=== PATIENT | male | born 1995 | race Caucasian/White ===

== ENCOUNTER 2017-01-31 19:22 | Emergency (ER) | payer BC, OTHER ==
[~2017-01-31 19:22] MED LIST: BACT2OIN TOP; CLEO300C2 PO
[2017-01-31 19:25] VITALS: BP 148/80; PULSE 58; RESP 18; TEMP 98.7; O2SAT 97
[2017-01-31] MEDS ORDERED: PROM12.54 PO (20:20)
[2017-01-31 20:25] LABS: AUTOMATED NEUTROPHIL # 5.2 TH/MM3 (1.8-7.7); BASOPHIL % 0.4 % (0.0-2.0); HEMOGLOBIN 18.1 GM/DL (13.0-17.0); LYMPH % 13.9 % (9.0-44.0); MEAN CELL VOLUME 84.6 FL (80.0-100.0); MEAN CORPUSCULAR HEMOGLOBIN 30.1 PG (27.0-34.0); MEAN CORPUSCULAR HGB CONC 35.6 % (32.0-36.0); MONO % 12.8 % (0.0-8.0); MONOCYTE # 0.9 TH/MM3 (0-0.9); NEUT % 72.9 % (16.0-70.0); PLATELET COUNT 271 TH/MM3 (150-450); RED BLOOD COUNT 6.03 MIL/MM3 (4.50-5.90); WHITE BLOOD COUNT 7.1 TH/MM3 (4.0-11.0)
[2017-01-31 20:35] LABS: INTERNATIONAL NORMALIZED RATIO 1.1 RATIO; PROTHROMBIN TIME - PATIENT 11.4 SEC (9.8-11.6)
[2017-01-31] MEDS ORDERED: ONDANSETRON HCL 4 MG/2 ML VIAL IV PUSH ONE (20:45)
[2017-01-31] MEDS ORDERED: SODIUM CHLORIDE 0.9% FLUSH 10 ML FLUSH IVF PRN (20:45)
[2017-01-31] MEDS ORDERED: SODIUM CHLOR 0.9% 1000 ML INJ 1,000 ML IV ONE ×2 (20:45→22:00)
[2017-01-31 20:47] LABS: ALT (GPT) 36 U/L (12-78); BICARBONATE 25.8 MEQ/L (21.0-32.0); BLOOD UREA NITROGEN 15 MG/DL (7-18); CALCIUM 9.2 MG/DL (8.5-10.1); CHLORIDE 93 MEQ/L (98-107); CREATININE 0.98 MG/DL (0.60-1.30); GLOMERULAR FILTRATION RATE 96 ML/MIN (>89); GLUCOSE,RANDOM 116 MG/DL (74-106); LIPASE 154 U/L (73-393); SODIUM (NA) 133 MEQ/L (136-145)
[2017-01-31 20:52] LABS: ALKALINE PHOSPHATASE 71 U/L (45-117); AST (GOT) 30 U/L (15-37); TOTAL BILIRUBIN ADULT 0.5 MG/DL (0.2-1.0); TOTAL PROTEIN 8.2 GM/DL (6.4-8.2)
[2017-01-31 20:58] LABS: BILIRUBIN, URINE NEG (NEG); BLOOD, URINE MOD (NEG); GLUCOSE,URINE NEG (NEG); KETONE, URINE 80 mg/dL (NEG); MUCUS URINE FEW /lpf (OCC); NITRITE,URINE NEG (NEG); SQUAMOUS EPITHELIAL CELL URINE <1 /hpf (0-5); URINE COLOR YELLOW (YELLW/STRAW); URINE LEUKOCYTE ESTERASE NEG (NEG)
[2017-01-31] MEDS ORDERED: FAMOTIDINE 20 MG/2 ML VIAL IV PUSH STA (21:43)
--- NOTE | 2017-01-31 21:48 | PD ---
HPI Chief Complaint: Cold / Flu Symptoms Time Seen by Provider: 20:36 Travel History International Travel<30 days: No Contact w/Intl Traveler<30days: No Traveled to known affect area: No History of Present Illness HPI Patient is a 21-year-old male presenting to the emergency department for evaluation of 3 days of nausea, vomiting, epigastric abdominal pain, diarrhea. He states that he had a fever on the first day of illness, he has not had a fever since that day. He went to his primary doctor yesterday and was prescribed Tamiflu and nausea medication which he has been unable to keep down. Patient reports that a friend had a similar illness which resolved on its own. He states the pain is epigastric and burning in nature, he rates his pain a 4/10 there are no alleviating or exacerbating factors. Patient denies any significant past medical history, he does report occasional tobacco, alcohol and marijuana use. PFSH Past Medical History Medical History: Denies Significant Hx Autoimmune Disease: No Blood Disorders: No Anxiety: No Depression: No Cardiovascular Problems: No Diminished Hearing: No Genitourinary: No Musculoskeletal: No Neurologic: No Psychiatric: No Respiratory: No Sickle Cell Disease: No Tetanus Vaccination: Unknown Influenza Vaccination: No Past Surgical History Surgical History: No Previous Surgery Social History Alcohol Use: Yes ([facility]) Tobacco Use: Yes ([facility]) [facility]: [facility] Allergies-Medications (Allergen,Severity, Reaction): Coded Allergies: No Known Allergies (Verified , 06/11/09) Reported Meds & Prescriptions Reported Meds & Active Scripts Active Reported Promethazine (Promethazine HCl) 12.5 Mg Tab 12.5 Mg PO Q4H PRN Review of Systems Except as stated in HPI: all other systems reviewed are Neg General / Constitutional: Positive: Chills, No: Fever HENT: No: Headaches, Sore Throat, Congestion Cardiovascular: No: Chest Pain or Discomfort Respiratory: No: Cough, Shortness of Breath Gastrointestinal: Positive: Nausea, Vomiting, Diarrhea, Abdominal Pain ( epigastric), Loss of Appetite Musculoskeletal: No: Myalgias Physical Exam Narrative GENERAL: Well-developed, well-nourished, alert male. Resting in no acute distress. SKIN: Warm and dry. HEAD: Atraumatic. Normocephalic. EYES: Pupils equal and round. No scleral icterus. No injection or drainage. ENT: No nasal bleeding or discharge. Mucous membranes pink and moist. NECK: Trachea midline. No JVD. CARDIOVASCULAR: Regular rate and rhythm. RESPIRATORY: No accessory muscle use. Clear to auscultation. Breath sounds equal bilaterally. GASTROINTESTINAL: Abdomen soft, non-tender, nondistended. Hepatic and splenic margins not palpable. Positive bowel sounds, no rebound, no guarding. MUSCULOSKELETAL: Extremities without clubbing, cyanosis, or edema. No obvious deformities. NEUROLOGICAL: Awake and alert. No obvious cranial nerve deficits. Motor grossly within normal limits. Five out of 5 muscle strength in the arms and legs. Normal speech. PSYCHIATRIC: Appropriate mood and affect; insight and judgment normal. Data Data Last Documented VS Vital Signs Date Time Temp Pulse Resp B/P (MAP) Pulse Ox O2 Delivery O2 Flow Rate FiO2 01/31/17 21:57 98 Room Air 01/31/17 19:25 98.7 58 18 Orders Orders Complete Blood Count With Diff (01/31/17 19:35) Comprehensive Metabolic Panel (01/31/17 19:35) Lipase (01/31/17 19:35) Prothrombin Time / Inr (Pt) (01/31/17 19:35) Act Partial Throm Time (Ptt) (01/31/17 19:35) Urinalysis - C+S If Indicated (01/31/17 19:35) Influenzae A/B Antigen (01/31/17 20:34) Ecg Monitoring (01/31/17 20:34) Iv Access Insert/Monitor (01/31/17 20:34) Oximetry (01/31/17 20:34) Sodium Chloride 0.9% Flush (Ns Flush) (01/31/17 20:45) Sodium Chlor 0.9% 1000 Ml Inj (Ns 1000 M (01/31/17 20:45) Ondansetron Inj (Zofran Inj) (01/31/17 20:45) Famotidine Inj (Pepcid Inj) (01/31/17 21:43) Sodium Chlor 0.9% 1000 Ml Inj (Ns 1000 M (01/31/17 22:00) Potassium Chloride (Kcl) (01/31/17 22:15) Labs Laboratory Tests Test 01/31/17 19:55 01/31/17 20:00 White Blood Count 7.1 TH/MM3 Red Blood Count 6.03 MIL/MM3 Hemoglobin 18.1 GM/DL Hematocrit 51.0 % Mean Corpuscular Volume 84.6 FL Mean Corpuscular Hemoglobin 30.1 PG Mean Corpuscular Hemoglobin Concent 35.6 % Red Cell Distribution Width 13.0 % Platelet Count 271 TH/MM3 Mean Platelet Volume 9.0 FL Neutrophils (%) (Auto) 72.9 % Lymphocytes (%) (Auto) 13.9 % Monocytes (%) (Auto) 12.8 % Eosinophils (%) (Auto) 0.0 % Basophils (%) (Auto) 0.4 % Neutrophils # (Auto) 5.2 TH/MM3 Lymphocytes # (Auto) 1.0 TH/MM3 Monocytes # (Auto) 0.9 TH/MM3 Eosinophils # (Auto) 0.0 TH/MM3 Basophils # (Auto) 0.0 TH/MM3 CBC Comment DIFF FINAL Differential Comment Prothrombin Time 11.4 SEC Prothromb Time International Ratio 1.1 RATIO Activated Partial Thromboplast Time 29.3 SEC Blood Urea Nitrogen 15 MG/DL Creatinine 0.98 MG/DL Random Glucose 116 MG/DL Total Protein 8.2 GM/DL Albumin 4.0 GM/DL Calcium Level 9.2 MG/DL Alkaline Phosphatase 71 U/L Aspartate Amino Transf (AST/SGOT) 30 U/L Alanine Aminotransferase (ALT/SGPT) 36 U/L Total Bilirubin 0.5 MG/DL Sodium Level 133 MEQ/L Potassium Level 3.4 MEQ/L Chloride Level 93 MEQ/L Carbon Dioxide Level 25.8 MEQ/L Anion Gap 14 MEQ/L Estimat Glomerular Filtration Rate 96 ML/MIN Lipase 154 U/L Urine Color YELLOW Urine Turbidity CLEAR Urine pH 6.0 Urine Specific [place] 1.026 Urine Protein 300 mg/dL Urine Glucose (UA) NEG mg/dL Urine Ketones 80 mg/dL Urine Occult Blood MOD Urine Nitrite NEG Urine Bilirubin NEG Urine Urobilinogen LESS THAN 2.0 MG/DL Urine Leukocyte Esterase NEG Urine RBC 3 /hpf Urine WBC 1 /hpf Urine Squamous Epithelial Cells <1 /hpf Urine Mucus FEW /lpf Microscopic Urinalysis Comment CULT NOT INDICATED MDM Medical Decision Making Medical Screen Exam Complete: Yes Emergency Medical Condition: Yes Interpretation(s) Laboratory Tests Test 01/31/17 19:55 01/31/17 20:00 White Blood Count 7.1 TH/MM3 Red Blood Count 6.03 MIL/MM3 Hemoglobin 18.1 GM/DL Hematocrit 51.0 % Mean Corpuscular Volume 84.6 FL Mean Corpuscular Hemoglobin 30.1 PG Mean Corpuscular Hemoglobin Concent 35.6 % Red Cell Distribution Width 13.0 % Platelet Count 271 TH/MM3 Mean Platelet Volume 9.0 FL Neutrophils (%) (Auto) 72.9 % Lymphocytes (%) (Auto) 13.9 % Monocytes (%) (Auto) 12.8 % Eosinophils (%) (Auto) 0.0 % Basophils (%) (Auto) 0.4 % Neutrophils # (Auto) 5.2 TH/MM3 Lymphocytes # (Auto) 1.0 TH/MM3 Monocytes # (Auto) 0.9 TH/MM3 Eosinophils # (Auto) 0.0 TH/MM3 Basophils # (Auto) 0.0 TH/MM3 CBC Comment DIFF FINAL Differential Comment Prothrombin Time 11.4 SEC Prothromb Time International Ratio 1.1 RATIO Activated Partial Thromboplast Time 29.3 SEC Blood Urea Nitrogen 15 MG/DL Creatinine 0.98 MG/DL Random Glucose 116 MG/DL Total Protein 8.2 GM/DL Albumin 4.0 GM/DL Calcium Level 9.2 MG/DL Alkaline Phosphatase 71 U/L Aspartate Amino Transf (AST/SGOT) 30 U/L Alanine Aminotransferase (ALT/SGPT) 36 U/L Total Bilirubin 0.5 MG/DL Sodium Level 133 MEQ/L Potassium Level 3.4 MEQ/L Chloride Level 93 MEQ/L Carbon Dioxide Level 25.8 MEQ/L Anion Gap 14 MEQ/L Estimat Glomerular Filtration Rate 96 ML/MIN Lipase 154 U/L Urine Color YELLOW Urine Turbidity CLEAR Urine pH 6.0 Urine Specific [place] 1.026 Urine Protein 300 mg/dL Urine Glucose (UA) NEG mg/dL Urine Ketones 80 mg/dL Urine Occult Blood MOD Urine Nitrite NEG Urine Bilirubin NEG Urine Urobilinogen LESS THAN 2.0 MG/DL Urine Leukocyte Esterase NEG Urine RBC 3 /hpf Urine WBC 1 /hpf Urine Squamous Epithelial Cells <1 /hpf Urine Mucus FEW /lpf Microscopic Urinalysis Comment CULT NOT INDICATED Vital Signs Date Time Temp Pulse Resp B/P (MAP) Pulse Ox O2 Delivery O2 Flow Rate FiO2 01/31/17 20:15 98 Room Air 01/31/17 19:25 98.7 58 18 148/80 (102) 97 Room Air Differential Diagnosis Viral syndrome versus gastroenteritis versus foodborne illness versus gastritis versus other Narrative Course Patient is a 21-year-old male presenting to the emergency department evaluation of nausea or vomiting, diarrhea has been ongoing for 3 days. Patient's vital signs are stable, he is well-appearing. Patient labs were drawn while in triage. Labs are pending. IV access established, patient will be given Zofran , IV fluids, famotidine. Influenza is pending. Patient has not vomited while he has been in the emergency department. CBC with no acute findings Chemistry with potassium of 3.4, sodium 133. Patient was given oral potassium replacement as well as 2 L of IV fluids in the emergency department. Urinalysis is not indicative of urinary tract infection. Influenza is negative. Patient is resting comfortably, he has not had any further nausea or vomiting. He reports feeling somewhat better after medication administration. Patient's family member states that he was prescribed Phenergan. Patient will be prescribed Zofran ODT for nausea at home. He was encouraged to maintain adequate fluid intake, bland low-residue diet, increasing as tolerated. He was further encouraged to follow-up with his primary doctor. Additionally he can return to emergency department for any new or worsening symptoms. Patient verbalized understanding of instructions. Patient is stable for discharge. Diagnosis Primary Impression: Acute gastroenteritis Referrals: Primary Care Physician 3 days Patient Instructions: Gastroenteritis (ED), General Instructions Additional Instructions: Maintain adequate fluid intake [place], easy to digest diet, increase as tolerated Take medications as needed and as directed Return to emergency department for any new or worsening symptoms Follow-up with your primary doctor Med/Other Pt SpecificInfo: Prescription(s) given Scripts Ranitidine (Ranitidine) 150 Mg Tab 150 MG PO BID for Heartburn Management, #30 TAB 0 Refills Prov: Luz Elena Mar 01/31/17 Ondansetron Odt (Zofran Odt) 4 Mg Tab 4 MG SL Q6HR Y for Nausea/Vomiting, #15 TAB 0 Refills Prov: Luz Elena Mar 01/31/17 Disposition: 01 DISCHARGE HOME Condition: Stable Luz Elena Mar Jan 31, 2017 21:48
[2017-01-31 21:57] VITALS: O2SAT 98
[2017-01-31] MEDS ORDERED: POTASSIUM CHLORIDE 20 MEQ CONTROLLED RELEASE TAB PO ONE (22:15)
[2017-01-31] MEDS ORDERED: ZOFR4TAB3 SL (22:28)
[2017-01-31] MEDS ORDERED: RANI150T PO (22:28)
== END 2017-01-31 23:03 | disposition home or self-care (01) ==
LOC: NEPE 19:22
DX: K52.9 Noninfective gastroenteritis and colitis, unspecified (principal); R10.13 Epigastric pain; Z72.0 Tobacco use
CPT/HCPCS: 80053; 81001; 83690; 85025; 85610; 85730; 87804; 96374; 96375; 99285; J2405; J7030